=== PATIENT | male | born 1935 | race Caucasian/White ===

== ENCOUNTER 2018-06-12 10:39 | Observation (INO) | payer MEDICARE ==
[2018-06-12] MEDS ORDERED: Nitroglycerin 0.4 MG TAB (25 Tab Bottle) ONE (10:47)
[2018-06-12 11:13] LABS: #Eosinphils 0.3 thou/uL (0.0-0.7); #Lymphocytes 1.3 thou/uL (1.20-3.40); #Monocytes 0.3 thou/uL (0.11-0.59); #Neutrophils 3.9 thou/uL (1.40-6.50); %Basophils 0.1 % (0.0-1.0); Hemoglobin 13.3 g/dL (14.0-18.0); Mean Corpuscular HGB CONC 33.3 g/dL (32.0-36.0); Mean Corpuscular Hemoglobin 28.4 pg (27.0-31.0); Mean Corpuscular Volume 85.5 fL (78.0-98.0); Mean Platelet Volume 6.8 fL (7.4-10.4); Platelet Count 262 thou/uL (130-400); RBC Distribution Width 13.9 % (11.5-14.5); Red Blood Cell (RBC) Count 4.69 mill/uL (4.70-6.10); White Blood Cell (WBC) Count 5.8 thou/uL (4.8-10.8)
[2018-06-12 11:27] LABS: ALT (SGPT) 18 U/L (8-55); AST (SGOT) 17 U/L (5-34); Albumin 4.4 g/dL (3.4-4.8); Alkaline Phosphatase 163 U/L (40-150); Anion Gap 13 mmol/L (10-20); BUN (Urea Nitrogen) 14 mg/dL (8.4-25.7); Bilirubin, Total 0.6 mg/dL (0.2-1.2); CK (CPK) 226 U/L (30-200); Calc. Creatinine Clearance 0 mL/min (70-130); Calcium 9.2 mg/dL (7.8-10.44); Carbon Dioxide 28 mmol/L (23-31); Chloride 97 mmol/L (98-107); Estimated GFR-MDRD 67; Glucose 257 mg/dL (83-110); Lipase 78 U/L (8-78); Potassium 3.9 mmol/L (3.5-5.1); Protein, Total 8.4 g/dL (5.8-8.1); Sodium 134 mmol/L (136-145)
[2018-06-12 11:30] LABS: CKMB 2.7 ng/mL (0-6.6); Troponin I Less than 0.010 ng/mL (< 0.028)
--- NOTE | 2018-06-12 11:42 | RAD ---
CHEST 1 VIEW PORTABLE: Date: 06/12/18 HISTORY: 82-year-old male with history of chest pain for several days. COMPARISON: 12/13/15. FINDINGS: Heart size is borderline enlarged. No confluent pneumonia, overt edema, or pleural effusion. IMPRESSION: Borderline cardiomegaly. No significant other acute intrathoracic disease. Atherosclerosis of aorta. Stable from prior study. POS: [facility]
[2018-06-12] MEDS ORDERED: Calcium Carbonate 500 MG ChewTAB PO PRN (13:38)
[2018-06-12] MEDS ORDERED: Nitroglycerin 0.4 MG TAB (25 Tab Bottle) PO PRN (13:38)
[2018-06-12] MEDS ORDERED: Acetaminophen 325 MG TAB PO PRN (13:38)
[2018-06-12] MEDS ORDERED: Senokot S 8.6-50 MG TAB PO PRN (13:38)
[2018-06-12] MEDS ORDERED: Sodium Chloride 0.9% 1,000 ML IV SCH (13:45)
[2018-06-12] MEDS ORDERED: Insulin Regular 300 UNITS/3 ML VIAL SC PRN (14:02)
[2018-06-12] MEDS ORDERED: Dextrose 50% Abboject 50 ML SYRINGE SLOW IVP PRN (14:02)
[2018-06-12] MEDS ORDERED: Dextrose 5% in Water 1,000 ML IV PRN (14:02)
--- NOTE | 2018-06-12 14:02 | HP ---
DATE OF ADMISSION: 06/12/2018 PRIMARY CARE PHYSICIAN: Dr. Bacon. PRIMARY BLIND TEACHER: Dr. Alex Pierce. CHIEF COMPLAINT: Chest discomfort. HISTORY OF PRESENT ILLNESS: The patient is an 82-year-old male with coronary artery disease, status post stent placement, who presented to the emergency room with chest discomfort that has been ongoing for the last 3 days. The chest discomfort was precordial, pressure-like, radiating to his left shou lder. The pain is intermittent without any aggravating or relieving factor. The chest pain has reso lved at this time. He had some diaphoresis; however, he denies any nausea, vomiting, palpitations or syncope. He received sublingual nitroglycerin and aspirin in the emergency room. History was obtai adarsh with the help of a real estate internship. The patient had some intermittent lightheadedness and shortness o f breath that has improved at this time. PAST MEDICAL HISTORY: 1. Coronary artery disease, status post stent placement. 2. Mild aortic stenosis. 3. Diabetes mellitus type 2. 4. Hypertension. 5. Dyslipidemia. PAST SURGICAL HISTORY: 1. Cardiac catheterization. 2. Hernia repair. 3. Prostate surgery. ALLERGIES: No known drug allergies. CURRENT HOME MEDICATIONS: Patient does not know any of his home medications. He has all of his medi cations in his truck, which is parked in the hospital parking lot. SOCIAL HISTORY: Patient currently lives at home. Denies any smoking, alcohol or drug use. He curre ntly makes his own decisions with the help of his family. CODE STATUS: FULL CODE. FAMILY HISTORY: Negative for heart disease. REVIEW OF SYSTEMS: The following complete review of systems was negative, unless otherwise mentioned in the HPI or below: Constitutional: Weight loss or gain, ability to conduct usual activities. Skin: Rash, itching. Eyes: Double vision, pain. ENT/Mouth: Nose bleeding, neck stiffness, pain, tenderness. Cardiovascular: Palpitations, dyspnea on exertion, orthopnea. Respiratory: Shortness of breath, wheezing, cough, hemoptysis, fever or night sweats. Gastrointestinal: Poor appetite, abdominal pain, heartburn, nausea, vomiting, constipation, or diarr hea. Genitourinary: Urgency, frequency, dysuria, nocturia. Musculoskeletal: Pain, swelling. Neurologic/Psychiatric: Anxiety, depression. Allergy/Immunologic: Skin rash, bleeding tendency. PHYSICAL EXAMINATION: VITAL SIGNS: Show temperature 98, respiration 18, pulse 70, blood pressure 125/80 with O2 saturation 94% on room air. GENERAL: An 82-year-old male in no apparent distress. HEENT: Head is atraumatic, normocephalic. Sclerae are anicteric. Moist mucous membrane. No oral l esion. NECK: Supple, no JVD, no carotid bruit. LUNGS: Clear to auscultation bilaterally, no wheezing, rales or rhonchi. HEART: S1, S2 present. Regular rate and rhythm. There is a systolic murmur over the aortic area. No heaves or pulsation. ABDOMEN: Soft, nontender, bowel sounds present. EXTREMITIES: No edema or calf tenderness. NEUROLOGIC: Grossly nonfocal, moves all four extremities. PSYCHIATRY: Alert, awake, oriented x3. SKIN: Warm and dry. LYMPH NODES: No palpable lymph nodes in the neck. PERIPHERAL VASCULAR: Radial pulses palpable bilaterally. MUSCULOSKELETAL: No joint swelling or tenderness. LABORATORY DATA: CBC showed WBC 5.8 with hemoglobin 13.3, hematocrit 40.1, platelet 262. Chemistry showed sodium 134, potassium 3.9, chloride 97, bicarbonate 28, BUN 14, creatinine 1.06. Troponin was negative. BNP 24.4. X-RAY FINDINGS: Chest x-ray by my review was negative for infiltrate. EKG by my review showed sinus rhythm with left axis deviation. No significant ST-T wave changes noted. IMPRESSION AND PLAN: 1. Chest discomfort in an 82-year-old male with coronary artery disease, status post stent. The pat ient will be monitored on the telemetry unit. Due to extensive coronary artery disease, we will cons ult Cardiology. We will keep him n.p.o. We will continue aspirin. Home medications are unclear. H keren states that he has stopped taking aspirin. We will add low dose statin. Serial troponins will be ordered. 2. Diabetes mellitus type 2. We will start him on sliding scale. We will try to obtain accurate li st of medications from his PCP's office. 3. Hypertension. We will resume home medications once confirmed. 4. Hyperlipidemia. Plan as discussed above. 5. Chronic kidney disease stage 2. 6. Mild hyponatremia. 7. Mild normochromic normocytic anemia. Plan of care was discussed with the patient in detail. He stated understanding.
[2018-06-12 14:22] LABS: Troponin I Less than 0.010 ng/mL (< 0.028)
[2018-06-12 16:00] VITALS: BMI 31.6
[2018-06-12] MEDS: Insulin Regular 300 UNITS/3 ML VIAL SC PRN (16:53)
[2018-06-12] MEDS: Sodium Chloride 0.9% 1,000 ML IV SCH (17:00)
[2018-06-12] MEDS ORDERED: Carvedilol 6.25 MG TAB PO SCH (17:00)
[2018-06-12 18:10] LABS: Troponin I Less than 0.010 ng/mL (< 0.028)
--- NOTE | 2018-06-12 19:14 | CON ---
DATE OF CONSULTATION: 06/12/2018 CARDIOLOGY CONSULTATION REASON FOR CONSULTATION: Chest pain. PRIMARY DIGITAL PROJECT COORDINATOR: Alex Pierce M.D. HISTORY OF PRESENT ILLNESS: Mr. Ferreira is a very pleasant 82-year-old white gentleman who comes to the hospital for chest pain. He was at home, called the office complaining about having chest pain. He was advised to come to the hospital for further evaluation. In the ER, he was evaluated. He has a history of coronary artery disease with previous stenting to his circumflex and OM, so he was admi tted for a rule out. So far, his troponins have been negative. He describes the pain as a stabbing sensation that lasts just a few seconds at a time, happening at random times. He tells me he has had this pretty much all his life. This has just been a little more frequent recently. He was given a sublingual nitro, did not really feel any change in his symptoms. Currently, he is pain free. PAST MEDICAL HISTORY: 1. Coronary artery disease, status post stent placement. Dr. Purvis put in a stent for Dr. Stan huang in 12/2015. He had a 3.0 x 32 mm bare metal Rebel stent to the left circumflex, posted to about 3.1 mm. 2. Mild aortic stenosis. 3. Type 2 diabetes. 4. Hypertension. 5. Hyperlipidemia. PAST SURGICAL HISTORY: 1. Cardiac catheterization as above. 2. Hernia repair. 3. Prostate surgery. OUTPATIENT MEDICATIONS: 1. Metformin 1000 mg twice a day. 2. Ramipril 5 mg a day. 3. Omeprazole 40 mg a day. 4. Metoprolol succinate 50 mg a day. 5. Imdur 30 mg a day. 6. Plavix 75 mg a day. 7. Lipitor 80 mg at bedtime. 8. Aspirin 81 a day. ALLERGIES: No known drug allergies. SOCIAL HISTORY: No alcohol, tobacco or drugs. FAMILY HISTORY: Noncontributory. REVIEW OF SYSTEMS: A 12-point review of systems was done and is all negative unless stated in the hi story of present illness. PHYSICAL EXAMINATION: VITAL SIGNS: Temperature 97.8, pulse 60, respiration rate 18, satting 100% on room air, blood pressu re 147/65. GENERAL: Awake, alert, oriented x3, in no distress. HEENT: Normocephalic, atraumatic. NECK: Supple. LUNGS: Clear. CARDIOVASCULAR: S1, S2. No S3, S4. No murmurs. ABDOMEN: Soft. Positive bowel sounds. EXTREMITIES: No edema. SKIN: Warm and dry. LABORATORY WORK: Reviewed. CBC with a white count of 5.8, hemoglobin 13.3, hematocrit 40, platelet count of 262,000. Coags were reviewed. Chemistry with a sodium of 134, potassium of 3.9, chloride o f 97, carbon dioxide of 28, anion gap of 13, BUN of 14, creatinine 1.06, GFR of 67, glucose of 257. Alkaline phosphatase and CK a little bit high at 163 and 226 respectively. Troponin is negative x2. BNP was 24, albumin of 4.4, lipase of 78. IMAGING: Chest x-ray was reviewed. EKG was reviewed, no ischemic changes. ASSESSMENT: 1. Chest pain: Atypical. 2. Coronary artery disease with history of stenting to the left circumflex in 2016. 3. Abnormal stress test back in 02/2017 showing just an inferior scar with mildly reduced EF at abou t 46%. PLAN: Symptoms are similar to what they have been for a long, long time. He is ruled out for an acu te coronary syndrome. We will plan on further risk stratification with a stress test. If the stress test looks similar to what it did a little over a year ago, he should be able to be discharged home on medical therapy. Otherwise, he may need further risk stratification. Further decisions by Dr. Blaine saldana tomorrow, his primary flarer.
[2018-06-12] MEDS ORDERED: Atorvastatin Calcium 40 MG TAB PO SCH (21:00)
[2018-06-12] MEDS ORDERED: Atorvastatin Calcium 20 MG TAB PO SCH (21:00)
[2018-06-12] MEDS ORDERED: Famotidine 20 MG TAB PO SCH (21:00)
[2018-06-13] MEDS ORDERED: Clopidogrel Bisulfate 75 MG TAB PO SCH (09:00)
[2018-06-13] MEDS ORDERED: Aspirin 81 mg Enteric Coated Tablet PO SCH (09:00)
[2018-06-13] MEDS ORDERED: Aspirin 325 MG TAB PO SCH (09:00)
[2018-06-13] MEDS ORDERED: ADENOSINE 60 MG/20 ML VIAL ONE (10:24)
[2018-06-13] MEDS: Insulin Regular 300 UNITS/3 ML VIAL SC PRN ×2 (13:21→16:43)
--- NOTE | 2018-06-13 14:31 | NM ---
RADIONUCLIDE STREE AND REST MYOCARDIAL PERFUSION SCAN WITH CT ATTENUATION CORRECTION AND SPECT IMAGIN G LEFT VENTRICULAR WALL MOTION EVALUATION AND EJECTION FRACTION: History: Chest pain. FINDINGS: Adenosine protocol. There is homogeneous uptake of radiotracer throughout the left ventricular myocar dium without focal perfusion defect or reversibility. Despite an area of abnormality at the inferior lateral wall on the subtraction polar map images, no significant reversibility is evident on the SPEC T images. QGS analysis of gated SPECT images shows no focal wall motion abnormalities. Ejection fraction is margarita culated at 63%. IMPRESSION: Normal myocardial perfusion scan. Normal LVEF. POS: [facility]
[2018-06-13] MEDS: Sodium Chloride 0.9% 1,000 ML IV SCH (14:32)
[2018-06-13 16:06] VITALS: BP 114/60; TEMP 97.9
--- NOTE | 2018-06-13 17:37 | DIS ---
DATE OF DISCHARGE: 06/13/2018 DISCHARGE DISPOSITION: Home. FOLLOWUP: Follow up with primary care physician, Dr. Bacon in 1 week. Follow up with Cardiology, Dr. Alex Pierce in 4 weeks. INPATIENT CONSULTANTS: Cardiology, Dr. Alex Pierce. The patient was seen and examined on the day of discharge. Denies any new complaints. No chest pain , shortness of breath, or palpitations. DISCHARGE MEDICATIONS: Same as admission medication. BRIEF HOSPITAL COURSE: The patient is an 82-year-old male with coronary artery disease, status post stent placement, who presented to the emergency room with chest discomfort. Please refer to the hist ory and physical for further details. The patient was admitted to the hospital with a diagnosis of chest discomfort, rule out acute coronar y syndrome. Serial troponins were negative. Patient was seen by Cardiology. He underwent a stress test that was negative for reversible ischemia. The patient has been cleared by Cardiology for disch arge. He was advised to take aspirin 81 mg on a daily basis. Recently, he has discontinued taking a spirin. Plan of care was discussed with the patient in detail. He stated understanding. FINAL DIAGNOSES: 1. Chest discomfort, acute coronary syndrome ruled out. 2. Diabetes mellitus type 2. 3. Negative Cardiolite stress test. 4. Hypertension 5. Hyperlipidemia. 6. Chronic kidney disease stage 2. 7. Mild hyponatremia. 8. Mild normochromic normocytic anemia.
--- NOTE | 2018-06-17 12:22 | STRESS ---
Acquisition Time: 2018-06-13 10:57:49 Total Exercise Time: 00:04:00 Test Indications: CHEST PAIN Medications: Protocol: ADENOSINE Max HR: 094 BPM 67% of Pred: 139 BPM Max BP: 126/072 mmHG Max Work Load: 1.0 METS THE PATIENT WAS INJECTED WITH ADENOSINE. HE DID NOT DEVELOP CHEST PAIN. THERE WAS NO SIGNIFICANT ST DEPRESSION. AWAIT NUCLEAR IMAGES FOR DEFINITIVE DIAGNOSIS. Confirmed by REBECCA WARE ([id number]), newspaper or periodical editor ANICETO CANO ([id number]) on 06/17/2018 12:22:31 PM Referred By: MD Fidel NG Confirmed By:REBECCA WARE
== END 2018-06-13 17:44 | disposition home or self-care (01) ==
LOC: ERS 10:39 → ERHOLD 14:09 → 2SW 15:24
PROVIDERS: ADMIT Internal Medicine; ATTEND Internal Medicine
DX: R07.89 Other chest pain (principal); I25.10 Atherosclerotic heart disease of native coronary artery without angina pectoris; I35.0 Nonrheumatic aortic (valve) stenosis; E78.5 Hyperlipidemia, unspecified; I12.9 Hypertensive chronic kidney disease with stage 1 through stage 4 chronic kidney disease, or unspecified chronic kidney disease; E11.22 Type 2 diabetes mellitus with diabetic chronic kidney disease; N18.2 Chronic kidney disease, stage 2 (mild); D63.1 Anemia in chronic kidney disease; E87.1 Hypo-osmolality and hyponatremia; Z79.02 Long term (current) use of antithrombotics/antiplatelets; Z79.84 Long term (current) use of oral hypoglycemic drugs; Z79.82 Long term (current) use of aspirin; Z79.899 Other long term (current) drug therapy; Z95.5 Presence of coronary angioplasty implant and graft
CPT/HCPCS: 71045; 78452; 80053; 82550; 82553; 82962 ×2; 83690; 83735; 83880; 84484 ×2; 85025; 90662; 93005; 93017; 94760; 96360; 96361 ×2; 99285; A9500; G0008; G0378; 36415; 36416; 90471; J0153; J1815